=== PATIENT | male | born 1940 | race Caucasian/White ===

== ENCOUNTER 2020-05-09 13:55 | Inpatient (IN) | payer MEDICARE, BC ==
[~2020-05-09] VITALS: Ht 182.9 cm; Wt 77.1 kg
--- NOTE | 2020-05-09 14:00 | NUR ---
LEFT URGENT MESSAGE FOR [facility] FOR PSYCH EVAL.
[2020-05-09] MEDS ORDERED: LAMO25TA5 PO (14:10)
[2020-05-09] MEDS ORDERED: PITA2TAB PO (14:10)
[2020-05-09] MEDS ORDERED: THYR60TA30 PO (14:10)
[2020-05-09] MEDS ORDERED: METF-440 PO (14:10)
[2020-05-09] MEDS ORDERED: QUET100T PO (14:10)
--- NOTE | 2020-05-09 16:30 | NUR ---
Wendy Larsen at bedside for psych eval.
--- NOTE | 2020-05-09 17:01 | NUR ---
pt will be admitted to [facility] voluntarily.
--- NOTE | 2020-05-09 17:15 | NUR ---
pt took own lamictal 25mg pill per er md bran.
--- NOTE | 2020-05-09 17:30 | NUR ---
transfered pt to [facility] in stable condition with hospital food tray. pt remained calm and cooperative the whole er stay.
[2020-05-09] MEDS ORDERED: MAGNESIUM HYDROXIDE 30 ML LIQUID UDC PO PRN (17:45)
[2020-05-09] MEDS ORDERED: MAG HYDROX/AL HYDROX/SIMETH 30 ML LIQUID UDC PO PRN (17:45)
[2020-05-09] MEDS ORDERED: ACETAMINOPHEN 325 MG TABLET PO PRN (17:45)
[2020-05-09] MEDS ORDERED: TEMAZEPAM 7.5 MG CAPSULE PO PRN (17:45)
--- NOTE | 2020-05-09 17:57 | NUR ---
pt received from ER on [facility] accompanied by RN. pt is AOx4. Pleasant upon approach. Able to make all needs known. Pt is admitted on a voluntary basis. Upon face to face, pt is quite pleasant, answers all questions candidly. Currently denies suicidal ideations. States he mentioned to his today that he felt he did not want to live anymore, but stated "as soon as i said that, i immediately regretted it. I don't ever want to hurt myself." Pt does admit to feeling depressed and hopeless due to a recent Dementia diagnoses. States he feels sad he cannot remember things as he once used to. Pt denies pain or discomfort at this time. Able to sign all documentation. Currently having his dinner at this time. Dr. Gleason is present and aware of admission. Dr. Tovar is paged.
[2020-05-09 18:26] VITALS: BP 137/89
[2020-05-09] MEDS ORDERED: DEXTROSE 50% 50 ML DISP.SYRIN IV PRN (18:45)
[2020-05-09] MEDS ORDERED: INSULIN REGULAR, HUMAN 300 UNIT/3 ML VIAL SQ PRN (18:45)
[2020-05-09] MEDS ORDERED: INSULIN REGULAR, HUMAN 300 UNITS/3 ML VIAL SQ PRN (18:45)
[2020-05-09 20:00] VITALS: BP 145/86
[2020-05-09] MEDS: BLOOD SUGAR DIAGNOSTIC 1 EACH STRIP VI SCH (20:15)
[2020-05-09] MEDS: LORAZEPAM 1 MG TABLET PO PRN (20:25)
--- NOTE | 2020-05-10 03:18 | NUR ---
RECEIVED PATIENT IN BED AWAKE. APPEARS DEPRESSED AND IRRITABLE ESPECIALLY WHEN HE COULD NOT GET THE SAME MEDS HE WAS TAKING AT HOME. EDUCATION GIVEN. DENIES SI/HI. LATER GAVE TAB ATIVAN 1 MG @ 20:45 FOR ANXIETY WITH GOOD EFFECT. BLOOD SUGAR CHECK WAS 189 BUT HE REFUSED INSULIN COVERAGE PER SLIDING SCALE SAYING" I HAVE NEVER HAD INSULIN BEFORE IN MY LIFE".VISUAL CHECKS MADE ON HIM FOR SAFETY. WILL CONTINUE TO MONITOR.
[2020-05-10] MEDS: BLOOD SUGAR DIAGNOSTIC 1 EACH STRIP VI SCH ×4 (06:36→20:10)
--- NOTE | 2020-05-10 06:39 | NUR ---
HE SLEPT WELL FOR 7:30 HOURS. HE IS UP AND HAS TAKEN A SHOWER. BLOOD SUGAR CHECK IS 87
[2020-05-10 07:30] VITALS: BP 114/81
[2020-05-10 07:59] LABS: BASOPHILS % (AUTO) 0.5 % (0.0-2.0); EOSINOPHILS % (AUTO) 0.1 % (0.0-7.0); HEMATOCRIT 41.1 % (36.7-47.1); HEMOGLOBIN 14.5 g/dL (12.5-16.3); LYMPHOCYTES # (AUTO) 1.3 K/uL (20.0-40.0); MEAN CORPUSCULAR HEMOGLOBIN 32.7 uug (23.8-33.4); MEAN CORPUSCULAR HGB CONC 35 g/dL (32.5-36.3); MONOCYTES # (AUTO) 0.7 K/uL (2.0-10.0); MONOCYTES % (AUTO) 11.5 % (0.0-11.0); NEUTROPHILS # (AUTO) 4.3 K/uL (1.8-8.9); NEUTROPHILS % (AUTO) 67.9 % (38.5-71.5); PLATELET COUNT (AUTO) 183 K/uL (152-348); RED BLOOD CELL COUNT(AUTO) 4.42 MIL/uL (4.06-5.63); WHITE BLOOD COUNT (AUTO) 6.3 K/uL (3.6-10.2)
[2020-05-10] MEDS: METFORMIN HCL 500 MG TABLET PO SCH ×2 (08:23→16:18)
[2020-05-10] MEDS: LISINOPRIL 5 MG TABLET PO SCH (08:23)
[2020-05-10 08:56] LABS: BILIRUBIN,TOTAL 0.6 mg/dL (0.2-1.0); CREATININE 0.9 mg/dL (0.6-1.3); MAGNESIUM 2.3 mg/dL (1.8-2.4); PHOSPHOROUS 3.3 mg/dL (2.5-4.9); POTASSIUM 4.2 mmol/L (3.5-5.1); TOTAL PROTEIN, SERUM 6.9 g/dL (6.4-8.2)
[2020-05-10] MEDS ORDERED: LAMOTRIGINE 25 MG TABLET PO SCH (09:00)
[2020-05-10] MEDS: PITAVASTATIN 2 MG PO SCH (09:04)
[2020-05-10] MEDS: THYROID 60 MG TABLET PO SCH ×2 (09:04→16:18)
[2020-05-10] MEDS: NICORETTE GUM PO PRN ×7 (09:04→17:13)
[2020-05-10 09:36] LABS: THYROID STIMULATING HORMONE 2.531 mIU/mL (0.358-3.740)
--- NOTE | 2020-05-10 13:27 | NUR ---
Pt received lying in bed resting comfortably. Pt was anxious because he had not received his usual medications at the right time this morning. Gluing Machine Offbearer obtained orders for medications and pt became more restful and grateful. Able to make all needs known. Denies Si at this time, although pt states he feels depressed. Therapeutic communication provided.
[2020-05-10 16:00] VITALS: BP 115/74
[2020-05-10 20:03] VITALS: BP 118/66
[2020-05-10] MEDS: LORAZEPAM 1 MG TABLET PO PRN (20:36)
[2020-05-10] MEDS ORDERED: TRAZODONE 100 MG TABLET PO STA (22:55)
[2020-05-10] MEDS: CARBAMAZEPINE 200 MG TABLET PO SCH (23:08)
[2020-05-10] MEDS: RIVASTIGMINE TARTRATE 1.5 MG CAPSULE PO SCH (23:11)
[2020-05-11] MEDS: BLOOD SUGAR DIAGNOSTIC 1 EACH STRIP VI SCH ×4 (06:35→20:49)
[2020-05-11 07:30] VITALS: BP 98/59
[2020-05-11] MEDS: METFORMIN HCL 500 MG TABLET PO SCH ×2 (08:31→16:47)
[2020-05-11] MEDS: CARBAMAZEPINE 200 MG TABLET PO SCH ×3 (08:32→16:47)
[2020-05-11] MEDS: LISINOPRIL 5 MG TABLET PO SCH (08:32)
[2020-05-11] MEDS: PITAVASTATIN 2 MG PO SCH (08:33)
[2020-05-11] MEDS: THYROID 60 MG TABLET PO SCH ×2 (08:35→16:48)
[2020-05-11] MEDS: RIVASTIGMINE TARTRATE 1.5 MG CAPSULE PO SCH ×2 (09:02→20:49)
[2020-05-11] MEDS: NICORETTE GUM PO PRN ×4 (11:37→18:15)
[2020-05-11 15:31] VITALS: BP 108/66
--- NOTE | 2020-05-11 18:11 | NUR ---
patient remains Anxious and restless at this time. Re-assured frequently. Denies any suicidal ideation.
--- NOTE | 2020-05-11 19:20 | NUR ---
RECEIVED PT AWAKE, ALERT AND ORIENTEDX4. PT IN NO ACUTE DISTRESS. PLEASANT WHEN APPROACHED. NO SUICIDAL IDEATION NOTED. SAFETY AND COMFORT PROVIDED. WILL CONTINUE TO MONITOR.
[2020-05-11 20:17] VITALS: BP 111/66
[2020-05-11] MEDS: TRAZODONE 100 MG TABLET PO SCH (20:48)
--- NOTE | 2020-05-12 06:49 | NUR ---
PT SLEPT 7.30 HOURS. PT IN NO ACUTE DISTRESS NOTED. PT COOPERATIVE WITH CARE. PT BLOOD SUGAR LAST NIGHT WAS 95 AND RECENT ONE IS 93 . PRESCRIBED MEDICATION GIVEN AND PT TOLERATED IT WELL.SAFETY AND COMFORT PROVIDED. WILL ENDORSE TO INCOMING NURSE FOR CONTINUITY OF CARE.
[2020-05-12] MEDS: BLOOD SUGAR DIAGNOSTIC 1 EACH STRIP VI SCH (06:57)
[2020-05-12 07:30] VITALS: BP 131/77
[2020-05-12] MEDS: THYROID 60 MG TABLET PO SCH ×2 (08:26→16:53)
[2020-05-12] MEDS: LISINOPRIL 5 MG TABLET PO SCH (08:27)
[2020-05-12] MEDS: CARBAMAZEPINE 200 MG TABLET PO SCH ×3 (08:27→16:50)
[2020-05-12] MEDS: RIVASTIGMINE TARTRATE 1.5 MG CAPSULE PO SCH ×2 (08:27→20:41)
[2020-05-12] MEDS: METFORMIN HCL 500 MG TABLET PO SCH ×2 (08:27→16:50)
[2020-05-12] MEDS: PITAVASTATIN 2 MG PO SCH (08:29)
[2020-05-12] MEDS: NICORETTE GUM PO PRN ×5 (08:29→18:31)
--- NOTE | 2020-05-12 11:41 | NUR ---
Family Contact: SW called the pts , Nabila ([phone]), and left a voicemail stating that the SW would like to discuss the pts treatment and discharge plan at her convenience.
--- NOTE | 2020-05-12 12:50 | NUR ---
Initial Discharge Plan: Pt currently resides at his home with his , Nabila ([phone]), located at [address] [place] [address]. Per pt, he would like to return to his home. SW will work with the pt and the MD regarding appropriate discharge planning. SW will form a safe and proper discharge.
[2020-05-12 16:35] VITALS: BP 110/67
[2020-05-12 20:00] VITALS: BP 138/65
[2020-05-12] MEDS: TRAZODONE 100 MG TABLET PO SCH (20:40)
[2020-05-12] MEDS ORDERED: ATORVASTATIN 20 MG TABLET PO SCH (21:00)
--- NOTE | 2020-05-13 05:42 | NUR ---
Patient slept 7.30 hours last night. This blog writer was able to engage in meaningful conversation with the patient and patient was able to express his feelings. Patient denies SI at this time. Continuing to monitor for safety with frequent rounding.
[2020-05-13] MEDS: NICORETTE GUM PO PRN ×6 (06:08→19:37)
[2020-05-13 07:30] VITALS: BP 131/72
[2020-05-13] MEDS: PITAVASTATIN 2 MG PO SCH (08:14)
[2020-05-13] MEDS: RIVASTIGMINE TARTRATE 1.5 MG CAPSULE PO SCH ×2 (08:16→20:51)
[2020-05-13] MEDS: THYROID 60 MG TABLET PO SCH ×2 (08:16→16:02)
[2020-05-13] MEDS: CARBAMAZEPINE 200 MG TABLET PO SCH ×3 (08:16→16:02)
[2020-05-13] MEDS: METFORMIN HCL 500 MG TABLET PO SCH ×2 (08:16→16:02)
[2020-05-13] MEDS: LISINOPRIL 5 MG TABLET PO SCH (08:17)
--- NOTE | 2020-05-13 15:23 | NUR ---
Family Contact: SW called the pts , Nabila ([phone]), and left a voicemail stating that the SW would like to discuss the pts treatment and discharge plan at her convenience.
[2020-05-13 16:09] VITALS: BP 103/67
--- NOTE | 2020-05-13 16:25 | NUR ---
Family Contact: SW spoke to the pts , Nabila ([phone]), and informed her that the pt has made progress and is being discharged from the hospital the following day. Pts stated that she will pick him up around 12pm.
[2020-05-13 20:00] VITALS: BP 125/63
[2020-05-13] MEDS: TRAZODONE 100 MG TABLET PO SCH (20:51)
--- NOTE | 2020-05-13 21:36 | NUR ---
Patient received in room awake. Patient in no apparent distress and no aggressive behavior noted. Patient is interacting with peers and staff with good eye contact. Patient complaint with medication. Patient denies SI and patient is encouraged to express his feelings. Patient is also encouraged to attend group activities. Safe environment provided, frequent rounding, and clutter free environment. Bed in lowest position, bed locked, and bed alarm on while in bed.
[2020-05-14 07:30] VITALS: BP 131/71
[2020-05-14] MEDS: RIVASTIGMINE TARTRATE 1.5 MG CAPSULE PO SCH ×2 (08:41→20:43)
[2020-05-14] MEDS: LISINOPRIL 5 MG TABLET PO SCH (08:41)
[2020-05-14] MEDS: DIVALPROEX 250 MG TABLET.DR PO SCH ×3 (08:41→17:14)
[2020-05-14] MEDS: METFORMIN HCL 500 MG TABLET PO SCH ×2 (08:41→17:14)
[2020-05-14] MEDS: PITAVASTATIN 2 MG PO SCH ×2 (08:43→08:51)
--- NOTE | 2020-05-14 08:48 | NUR ---
Discharge Note: Pt will be discharged back to his home located at [address] [place] [address]. Pt will be picked up by his , Nabila ([phone]), around 12pm. Upon discharge, the pt appears to be in a euthymic mood and presents with a calm affect. Pt appears to be alert and oriented x4 (time, place, self and situation). Pt denies both suicidal and homicidal ideation as well as auditory and visual hallucinations. Pt appears to be well groomed and appropriately dressed. Pt appears to be ambulatory with a steady gait. Pt will be under the care of his psychiatrist, Dr. Tracy Arzola, located at [facility], [address], [place] [address]; . Pt has an appointment on 05/22/20 at 12:45pm. Pt will also be under the care of his microwave remote sensing scientist, Dr. Casey Torre, located at [address], [place] [address]; ; fax of records was sent to: [phone]. Pt has an appointment on 05/15/20 at 4:30pm. The multidisciplinary exit care form was done, printed, signed, and given to the patient. Addendum: 05/14/20 at 0857 by KAILASH CURRAN DISCHARGE WAS CANCELLED.
[2020-05-14] MEDS: THYROID 60 MG TABLET PO SCH ×2 (09:38→17:14)
--- NOTE | 2020-05-14 11:30 | NUR ---
Family Contact: SW spoke to the pts , Nabila ([phone]), and informed her that the pts MD would like to postpone the discharge for the following day as there was a medication that was adjusted the night before. Pts stated that she was informed by the MD that the pt would be ready on Monday and therefore the SW informed her that she can pecan picker the pt on Monday around the same time she had stated before and she agreed.
--- NOTE | 2020-05-14 11:30 | NUR ---
DISCHARGE WAS CANCELLED.
[2020-05-14] MEDS: NICORETTE GUM PO PRN ×2 (12:40→14:38)
[2020-05-14 16:00] VITALS: BP 134/71
--- NOTE | 2020-05-14 17:00 | NUR ---
Gps/Inside Trucker- Dr Gleason in to see patient, informed patient didnt sleep well last night , claimed it is noisy . Patient claimed he does not feel medications that was ordered for him not helping him.. Instructed to tell Dr Gleason how he feels., patient claimed he 's loosing his trust in the Bible and that made him felt bad. Hard of hearing .
[2020-05-14 20:00] VITALS: BP 135/75
[2020-05-14] MEDS: TRAZODONE 100 MG TABLET PO SCH (20:43)
[2020-05-15 07:30] VITALS: BP 129/79
[2020-05-15] MEDS: RIVASTIGMINE TARTRATE 1.5 MG CAPSULE PO SCH (08:46)
--- NOTE | 2020-05-15 08:46 | NUR ---
DISCHARGE NOTE: Pt will be discharged back to his home located at [address] [place] [address]. Pt will be picked up by his , Nabila ([phone]), around 12pm. Upon discharge, the pt appears to be in a euthymic mood and presents with a calm affect. Pt appears to be alert and oriented x4 (time, place, self and situation). Pt denies both suicidal and homicidal ideation as well as auditory and visual hallucinations. Pt appears to be well groomed and appropriately dressed. Pt appears to be ambulatory with a steady gait. Pt will be under the care of his psychiatrist, Dr. Tracy Arzola, located at [facility], [address], [place] [address]; ; Fax of records was sent to: [phone]. Pt has an appointment on 05/22/20 at 12:45pm. Pt will also be under the care of his security public safety officer, Dr. Casey Torre, located at [address], [place] [address]; ; fax of records was sent to: [phone]. Pt has an appointment on 05/15/20 at 4:30pm. The multidisciplinary exit care form was done, printed, signed, and given to the patient.
[2020-05-15] MEDS: PITAVASTATIN 2 MG PO SCH (08:47)
[2020-05-15] MEDS: DIVALPROEX 250 MG TABLET.DR PO SCH (08:47)
[2020-05-15] MEDS: METFORMIN HCL 500 MG TABLET PO SCH (08:47)
[2020-05-15 08:57] VITALS: BP 129/79
[2020-05-15] MEDS: LISINOPRIL 5 MG TABLET PO SCH (08:57)
[2020-05-15] MEDS: THYROID 60 MG TABLET PO SCH (08:58)
[2020-05-15] MEDS: NICORETTE GUM PO PRN (10:32)
--- NOTE | 2020-05-15 12:15 | NUR ---
Gps/Irish Moss Operator- Nabila here to transport patient to home , reviewed medications/ prescriptions, diet, (Diebetic diet) safety, skin care, follow up with his Psychiatrist Dr Mkcay,on 05/22/20 at 1245 pm, emphasized follow up with Feather Edger , verbalized understanding. All belongings/valuables given back to patient. Discharged in good spirit, able to contract for safety, no complaints noted.
== END 2020-05-15 12:30 | disposition home or self-care (01) | DRG 885 ==
LOC: ER 13:55 → GPS 17:26
PROVIDERS: ADMIT Psychiatry & Neurology Psychiatry; ATTEND Internal Medicine
DX: F31.30 Bipolar disorder, current episode depressed, mild or moderate severity, unspecified (principal); E03.9 Hypothyroidism, unspecified; E11.9 Type 2 diabetes mellitus without complications; E78.5 Hyperlipidemia, unspecified; I10 Essential (primary) hypertension; F17.290 Nicotine dependence, other tobacco product, uncomplicated; Z79.4 Long term (current) use of insulin
CPT/HCPCS: 36415; 82652; 83735; 84100; 84443; 85025; A4663; J1815; J3490